=== PATIENT | male | born 1960 | race Caucasian/White ===

== ENCOUNTER 2018-04-03 15:07 | Emergency (ER) | payer OTHER ==
[~2018-04-03] VITALS: Ht 188 cm; Wt 90.7 kg
--- NOTE | 2018-04-03 15:15 | NUR ---
Patient to ed c/o on and off left-side of the chest, pressure like, 5/10, non-radiating x 1 week associated with lightheadedness,. patient not in distress. Skin is warm to touch and non diaphoretic. patient is afebrile. vss
[2018-04-03] MEDS ORDERED: [UNRECOGNIZED DRUG - CODE] PO (15:21)
[2018-04-03] MEDS ORDERED: ASPIRIN 325 MG TABLET PO ONE (16:00)
[2018-04-03] MEDS ORDERED: NITROGLYCERIN 0.4 MG/TAB BOTTLE SL ONE (16:00)
[2018-04-03] MEDS ORDERED: NITROGLYCERIN 0.4 MG/TAB BOTTLE ONE (16:07)
[2018-04-03] MEDS ORDERED: ASPIRIN 325 MG TABLET ONE (16:08)
[2018-04-03 16:09] LABS: BASOPHILS % (AUTO) 0.6 % (0.0-2.0); EOSINOPHILS % (AUTO) 1.4 % (0.0-6.0); HEMATOCRIT 46 % (39-51); HEMOGLOBIN 15.3 g/dL (13.5-17.5); LYMPHOCYTES # (AUTO) 1.3 /CMM (0.8-4.8); LYMPHOCYTES % (AUTO) 27.3 % (20.0-44.0); MEAN CORPUSCULAR HEMOGLOBIN 31 PG (26.0-33.0); MEAN CORPUSCULAR HGB CONC 34 g/dl (31.0-36.0); MEAN CORPUSCULAR VOLUME 91 fL (80-96); MONOCYTES # (AUTO) 0.5 /CMM (0.1-1.30); MONOCYTES % (AUTO) 9.7 % (2.0-12.0); NEUTROPHILS # (AUTO) 2.8 /CMM (1.8-8.9); PLATELET COUNT (AUTO) 139 /CMM (150-450); RDW COEFFICIENT OF VARIATION 12.7 (11.5-15.0); RED BLOOD CELL COUNT(AUTO) 5.02 MIL/uL (4.5-6.0); WHITE BLOOD COUNT (AUTO) 4.7 K/uL (4.3-11.0)
[2018-04-03 16:18] LABS: ALANINE AMINOTRANSFERASE 39 U/L (12-78); ALBUMIN 3.6 g/dL (3.4-5.0); ALKALINE PHOSPHATASE 63 U/L (46-116); ASPARTATE AMINOTRANSFERASE 26 U/L (15-37); BILIRUBIN,DIRECT 0.2 mg/dL (0.0-0.2); BILIRUBIN,TOTAL 1.1 mg/dL (0.2-1.0); CALCIUM, SERUM 8.8 mg/dL (8.5-10.1); CARBON DIOXIDE 31 mmol/L (21-32); CHLORIDE 106 mmol/L (98-107); CREATININE 0.9 mg/dL (0.6-1.3); GLUCOSE 112 mg/dL (74-106); POTASSIUM 3.8 mmol/L (3.5-5.1); SODIUM SERUM 139 mmol/L (136-145); TOTAL PROTEIN, SERUM 6.1 g/dL (6.4-8.2); UREA NITROGEN, BLOOD 17 mg/dL (7-18)
[2018-04-03 16:20] LABS: TROPONIN I < 0.017 ng/mL (0.00-0.056)
[2018-04-03 16:22] LABS: INR 0.96 (0.85-1.15)
--- NOTE | 2018-04-03 16:50 | NUR ---
TELE [id number]
--- NOTE | 2018-04-03 20:10 | NUR ---
IV removed. Catheter intact and site benign. Pressure and 4x4 applied to site. No bleeding noted. Patient discharged to home in stable condition. Written and verbal after care instructions given. Patient verbalizes understanding of instruction. ambulatory with a steady gait noted. pt aaox4 no acute distress noted, resp even and unlabored.
[2018-04-03 20:13] VITALS: BP 149/73
== END 2018-04-03 20:13 | disposition home or self-care (01) ==
LOC: ER 15:11
DX: R07.89 Other chest pain (principal); Z90.89 Acquired absence of other organs; Z98.890 Other specified postprocedural states; Z79.899 Other long term (current) drug therapy
CPT/HCPCS: 36415; 71045; 80048; 80076; 84484 ×2; 85025; 85730; 93005 ×2; 99285; A4606; Z7610